=== PATIENT | male | born 1980 | race African-American/Black ===

== ENCOUNTER 2016-03-25 09:02 | Emergency (ER) | payer BC ==
[2016-03-25 09:18] VITALS: RESP 16; TEMP 96.2
--- NOTE | 2016-03-25 09:19 | PDOC ---
Sore Throat/Dental Pain HPI - General Chief Complaint: Sore Throat Stated Complaint: sore throat Date Seen by Provider: 03/25/16 Time Seen by Provider: 09:16 - History of Present Illness Initial Comments: 2 day hx sore throat no fever no hx tonsillectomy feeling of foreign body in throat - Patient Home Medications Home Medications: Home Medications Amoxicillin 500 mg PO TID #21 cap 03/25/16 - Patient Allergies Allergies/Adverse Reactions: Allergies Allergy/AdvReac Type Severity Reaction Status Date / Time No Known Allergies Allergy Verified 03/25/16 09:06 Past Medical History - heen HEENT History: Denies History Cardiovascular History: Denies History Respiratory History: Denies History Gastrointestinal History: Denies History Genitourinary History: Denies History Endocrine History: Denies History Musculoskeletal History: Denies History Prosthesis or Implant: No Neurological History: Denies History Blood Disorders: Denies History Psychiatric History: Denies History Male Reproductive History: Denies History Cancer History: Denies History In Past Year Been Physically Harmed or Verbally Threatened: No History of MDRO: No Tobacco Use: Never Smoker Alcohol Use: Occasionally Substance Use Type: None Previous Surgical History: Yes Type / Date of Surgery: LEFT RING FINGER ([employer] [place] ) Anesthesia Reactions: No Significant Family History: No pertinent family hx Past Medical History Reviewed: Reviewed - No Changes ROS - Limitations ROS Limitations: No Limitations Constitution: DENIES: Chills Cardiovascular: REPORTS: Denies Cardiac Symptoms Respiratory: REPORTS: Denies Resp Symptoms Neurological: REPORTS: Denies Neuro Symptoms Sore Throat/Dental Pain Exam - General Appearance General Appearance: REPORTS: Alert, Cooperative, No Acute Distress - HEENT Head / Face: POSITIVE: Atraumatic, Normal Inspection Eyes: POSITIVE: Inspection Normal Oropharynx: POSITIVE: Pharyngeal Erythema, Pharyngeal Exudate Sore Throat/Dental Progress - Results Reviewed by me Lab Results:: positive rapid strep - Patient's Progress MDM / ED Course: strep pharyngitis, treat with amox for 7 days Patient Care Time - Estimated PCT Patient Care Time (In Minutes): 15 Vital Signs - VS Reviewed Vital Signs Reviewed: Yes Discharge Clinical Impression: Streptococcal tonsillitis, Streptococcal sore throat Discharge Disposition: Discharged to Home Prescriptions / Orders: Amoxicillin 500 mg PO TID #21 cap Patient Instructions Given at Discharge: Strep Throat (ED) Additional Instructions: Amoxacillin 500mg three times daily Follow Up With: NONE,NONE [Primary Care Provider] -
== END 2016-03-25 09:24 | disposition home or self-care (01) ==
LOC: ER 09:02
DX: J03.00 Acute streptococcal tonsillitis, unspecified (principal)
CPT/HCPCS: 87802; 99282

== ENCOUNTER → 2016-07-31 | Outpatient (CLI) | payer BC ==
[2016-07-31 11:39] LABS: BLOOD UREA NITROGEN 13 mg/dL (7-22); BUN/CREATININE RATIO 10.83 (6-20); CALCIUM 9.2 mg/dL (8.7-10.7); EST GLOMERULAR FILTRATION > 60 (>60 ml/min/1.73m(2))
== END ==
LOC: LAB 10:58
PROVIDERS: ATTEND Internal Medicine Cardiovascular Disease
DX: I25.10 Atherosclerotic heart disease of native coronary artery without angina pectoris (principal)
CPT/HCPCS: 36415; 80048

== ENCOUNTER → 2016-08-26 | Outpatient (CLI) | payer BC ==
[2016-08-26 09:27] LABS: BLOOD UREA NITROGEN 16 mg/dL (7-22); BUN/CREATININE RATIO 14.54 (6-20); CALCIUM 9.1 mg/dL (8.7-10.7); CHOL/HDL RATIO 3.28 RATIO (0-4.0); EST GLOMERULAR FILTRATION > 60 (>60 ml/min/1.73m(2)); HDL CHOLESTEROL 39 mg/dL (40-150); SERUM ALBUMIN 3.9 g/dL (3.5-4.8); SERUM CHOLESTEROL 128 mg/dL (120-200)
== END ==
LOC: LAB 08:47
PROVIDERS: ATTEND Internal Medicine Cardiovascular Disease
DX: I25.10 Atherosclerotic heart disease of native coronary artery without angina pectoris (principal)
CPT/HCPCS: 36415; 80053; 80061